=== PATIENT | male | born 1945 | race Two or more races ===

== ENCOUNTER 2017-02-23 13:50 | Emergency (ER) | payer OTHER ==
[~2017-02-23] VITALS: Ht 175.3 cm; Wt 79.4 kg
[~2017-02-23 13:50] MED LIST: ATOR10TA PO; CITA20TA11 PO; IBUP100O18 PO; LEVO125T8 PO; TRAZ-144 PO
--- NOTE | 2017-02-23 14:05 | NUR ---
PT IS IN ROOM #2B. DR LOO EVALUATED THE PT.
[2017-02-23 14:26] VITALS: BP 143/81
--- NOTE | 2017-02-23 14:26 | NUR ---
PT WAS D/C TO HOME. D/C INSTRUCTIONS GIVEN TO THE PT BY DR LOO.
== END 2017-02-23 14:28 | disposition home or self-care (01) ==
LOC: ER 13:50
DX: H91.91 Unspecified hearing loss, right ear (principal); E78.00 Pure hypercholesterolemia, unspecified

== ENCOUNTER 2018-01-02 13:03 | Emergency (ER) | payer OTHER ==
[~2018-01-02] VITALS: Ht 175.3 cm; Wt 79.4 kg
[~2018-01-02 13:03] MED LIST changes: -CITA20TA11 PO; +CITA20TA16 PO; -IBUP100O18 PO; +IBUP100O19 PO
--- NOTE | 2018-01-02 13:05 | NUR ---
at bed side to examine patient.
[2018-01-02] MEDS ORDERED: ACETAZOLAMIDE 250 MG TABLET (13:20)
[2018-01-02] MEDS ORDERED: ONDANSETRON 4 MG/2 ML VIAL IV ONE (13:30)
[2018-01-02] MEDS ORDERED: IV NORMAL SALINE 1000 ML BAG IV ONE (13:30)
[2018-01-02] MEDS ORDERED: HYDROMORPHONE 1 MG/1 ML DISP.SYRIN IV ONE (13:30)
[2018-01-02] MEDS ORDERED: ONDANSETRON 4 MG/2 ML VIAL ONE (13:41)
[2018-01-02] MEDS ORDERED: HYDROMORPHONE 2 MG/1 ML DISP.SYRIN ONE (13:41)
[2018-01-02 13:44] LABS: BASOPHILS # (AUTO) 0.1 K/uL (0.0-8.0); EOSINOPHILS # (AUTO) 0.2 K/uL (0.0-0.7); EOSINOPHILS % (AUTO) 3.2 % (0.0-7.0); HEMATOCRIT 43.9 % (36.7-47.1); HEMOGLOBIN 14.8 g/dL (12.5-16.3); LYMPHOCYTES # (AUTO) 3.2 K/uL (20.0-40.0); LYMPHOCYTES % (AUTO) 44.4 % (20.5-51.5); MEAN CORPUSCULAR HEMOGLOBIN 30.5 uug (23.8-33.4); MEAN CORPUSCULAR HGB CONC 34 g/dL (32.5-36.3); MEAN CORPUSCULAR VOLUME 90.8 fL (73.0-96.2); MONOCYTES # (AUTO) 0.9 K/uL (2.0-10.0); MONOCYTES % (AUTO) 12.6 % (0.0-11.0); NEUTROPHILS # (AUTO) 2.8 K/uL (1.8-8.9); NEUTROPHILS % (AUTO) 38.8 % (38.5-71.5); PLATELET COUNT (AUTO) 227 K/uL (152-348); RED BLOOD CELL COUNT(AUTO) 4.83 MIL/uL (4.06-5.63); WHITE BLOOD COUNT (AUTO) 7.3 K/uL (3.6-10.2)
[2018-01-02 13:52] LABS: CREATININE 1.1 mg/dL (0.6-1.3); POTASSIUM 3.9 mmol/L (3.5-5.1)
[2018-01-02 13:57] LABS: BILIRUBIN,DIRECT 0.1 mg/dL (0.0-0.2); BILIRUBIN,TOTAL 0.4 mg/dL (0.2-1.0); TOTAL PROTEIN, SERUM 7.2 g/dL (6.4-8.2)
--- NOTE | 2018-01-02 14:41 | NUR ---
DCD instructions and prescription provided to patient and pt's daughter who remains at bedside.
--- NOTE | 2018-01-02 14:54 | NUR ---
patient left unit ambulatory with steady gait. no c/of pain.
[2018-01-02 14:57] LABS: *BILIRUBIN,URIN NEGATIVE (NEGATIVE); *BLOOD, URINE 2+ (NEGATIVE); *CLARITY,URINE CLEAR (CLEAR); *COLOR,URINE YELLOW (YELLOW); *KETONES,URINE NEGATIVE (NEGATIVE); *PROTEIN,URINE NEGATIVE (NEGATIVE); *UROBILINOGEN,URINE 0.2 E.U./dl (NORMAL); LEUKOCYTE ESTERASE ,URINE NEGATIVE (NEGATIVE); NITRITE, URINE NEGATIVE (NEGATIVE); PH,URINE 5.5 (5.0-8.0); UGLUCOSE NEGATIVE (NEGATIVE)
[2018-01-02 15:11] LABS: MUCUS,URINE FEW /LPF (0-FEW); WBC,URINE 0-3 /HPF (0-3)
== END 2018-01-02 14:55 | disposition home or self-care (01) ==
LOC: ER 13:05
DX: N20.0 Calculus of kidney (principal); E78.00 Pure hypercholesterolemia, unspecified; Z79.1 Long term (current) use of non-steroidal anti-inflammatories (NSAID); Z79.891 Long term (current) use of opiate analgesic; Z79.899 Other long term (current) drug therapy
CPT/HCPCS: 36415; 71045; 74176; 80048; 80076; 81001; 83690; 84484; 85025; 85730; 87086; 93005; 99285; A4663; J1170; J2405; J7030; 70030-TC

== ENCOUNTER 2018-01-03 01:26 | Inpatient (IN) | payer OTHER ==
[~2018-01-03] VITALS: Ht 175.3 cm; Wt 79.4 kg
[~2018-01-03 01:26] MED LIST changes: +ACETAZOLAMIDE 250 MG TABLET
--- NOTE | 2018-01-03 02:00 | NUR ---
Dr. Silva at bedside for MSE.
[2018-01-03] MEDS ORDERED: METOCLOPRAMIDE HCL 10 MG/2 ML VIAL IV ONE (02:15)
[2018-01-03] MEDS ORDERED: HYDROMORPHONE 1 MG/1 ML DISP.SYRIN IV ONE ×2 (02:15→04:00)
[2018-01-03] MEDS ORDERED: IV NORMAL SALINE 1000 ML BAG IV ONE (02:15)
[2018-01-03] MEDS ORDERED: METOCLOPRAMIDE HCL 10 MG/2 ML VIAL ONE (02:40)
[2018-01-03] MEDS ORDERED: HYDROMORPHONE 2 MG/1 ML DISP.SYRIN ONE ×2 (02:42→03:57)
[2018-01-03 03:09] LABS: BASOPHILS % (AUTO) 0.2 % (0.0-2.0); HEMOGLOBIN 13.9 g/dL (12.5-16.3); LYMPHOCYTES # (AUTO) 0.9 K/uL (20.0-40.0); LYMPHOCYTES % (AUTO) 8.4 % (20.5-51.5); MEAN CORPUSCULAR HEMOGLOBIN 30.7 uug (23.8-33.4); MEAN CORPUSCULAR HGB CONC 34 g/dL (32.5-36.3); MEAN CORPUSCULAR VOLUME 90.5 fL (73.0-96.2); MONOCYTES # (AUTO) 1.1 K/uL (2.0-10.0); MONOCYTES % (AUTO) 10.5 % (0.0-11.0); NEUTROPHILS # (AUTO) 8.6 K/uL (1.8-8.9); NEUTROPHILS % (AUTO) 80.9 % (38.5-71.5); PLATELET COUNT (AUTO) 200 K/uL (152-348); RED BLOOD CELL COUNT(AUTO) 4.53 MIL/uL (4.06-5.63); WHITE BLOOD COUNT (AUTO) 10.6 K/uL (3.6-10.2)
[2018-01-03 03:25] LABS: BILIRUBIN,DIRECT 0.2 mg/dL (0.0-0.2); BILIRUBIN,TOTAL 0.7 mg/dL (0.2-1.0); CREATININE 1.3 mg/dL (0.6-1.3); POTASSIUM 3.5 mmol/L (3.5-5.1); TOTAL PROTEIN, SERUM 7.1 g/dL (6.4-8.2)
--- NOTE | 2018-01-03 03:26 | NUR ---
Pt states pain now a 5/10, decreased but is coming back. notified.
--- NOTE | 2018-01-03 04:00 | NUR ---
Simeon farley in [facility] - 01/03/18 at [address] Silva on panel call with Kari Oro NP
--- NOTE | 2018-01-03 04:05 | NUR ---
Dr. Silva classroom monitor with Dr. Jamar Kincaid.
--- NOTE | 2018-01-03 04:38 | NUR ---
Pt states pain about 3/10.
--- NOTE | 2018-01-03 04:48 | NUR ---
Report given to Norma TOLEDO Medsurg.
[2018-01-03 06:00] VITALS: BP 127/72
--- NOTE | 2018-01-03 06:00 | NUR ---
Received patient from ER via wheelchair. Patient just walked out from the restroom. is at bedside. A/O x 4. Denies pain at the moment. IV on the Left AC # 20, patent and intact. Patient c/o unable to urinate. Patient denies nausea and vomiting at the moment. Patient has a steady gait with minimal assistance. No signs of edema. Safety initiated. Call light within reach. Room is kept clutter free. Admission protocol followed. Belongings list done. Wallet is kept at bedside with . Vital signs stable. No temperature. Will closely monitor.
[2018-01-03] MEDS ORDERED: HYDROCODONE/APAP 10-325 MG TABLET PO PRN ×2 (06:45→09:30)
--- NOTE | 2018-01-03 06:50 | NUR ---
Patient c/o pain 5/10 on the left abdomen. Pain medication [place]ers 10-325 given. Will continue to monitor.
--- NOTE | 2018-01-03 07:30 | NUR ---
ON BED, RESTING AT BEDSIDE, SUPPORTIVE OF PATIENT CARE. PATIENT COMFORTABLE AT THIS TIME, APPETITE GOOD. VERBALIZED NO BM X 2 DAYS, WARM PRUNE JUICE PROVIDED, WILL MONITOR
[2018-01-03] MEDS ORDERED: KETOROLAC TROMETHAMINE 15 MG INJ IVP ONE (09:30)
[2018-01-03] MEDS ORDERED: HYDROCODONE/APAP 5-325MG TABLET PO PRN (09:30)
[2018-01-03] MEDS ORDERED: MAGNESIUM HYDROXIDE 30 ML LIQUID UDC PO PRN (09:30)
[2018-01-03] MEDS ORDERED: IV NS 1000 ML 1,000 ML IV ONE ×2 (09:30→21:00)
[2018-01-03] MEDS ORDERED: ONDANSETRON 4 MG/2 ML VIAL IV PRN (09:30)
[2018-01-03] MEDS ORDERED: MELATONIN 3 MG TABLET PO PRN (09:45)
[2018-01-03] MEDS: TAMSULOSIN HCL 0.4 MG CAP.SR.24H PO SCH ×2 (10:17→20:39)
--- NOTE | 2018-01-03 11:06 | NUR ---
TWO DAUGHTERS AT BEDSIDE, SUPPORTIVE OF PATIENT CARE. MED X 1 FOR COMPLAINT OF PAIN, PENDING RELIEF. NEW ORDERS FROM MD, DISCUSSED AND PROVIDED .
[2018-01-03 11:29] VITALS: BP 110/62
[2018-01-03 11:31] VITALS: BP 100/51
--- NOTE | 2018-01-03 12:16 | NUR ---
DR CLEARY IN ,SAW PATIENT .HAD ORDERS CARRIED OUT.
[2018-01-03] MEDS ORDERED: LACTULOSE 20 G/30 ML LIQUID UDC PO PRN (12:30)
[2018-01-03] MEDS: KETOROLAC TROMETHAMINE 15 MG INJ IVP SCH ×2 (12:57→22:38)
[2018-01-03] MEDS: LEVOTHYROXINE SODIUM 125 MCG TABLET PO SCH (14:51)
--- NOTE | 2018-01-03 16:00 | NUR ---
BELIEVED PASSED 1 STONE, NOT STRAIN UNABLE TO ATTEST INFO. NO BLEEDING , REINFORCED TO USE URINAL AND STRAIN URINE, VERBALIZED UNDERSTANDING.
[2018-01-03 16:08] VITALS: BP 115/61
--- NOTE | 2018-01-03 19:13 | NUR ---
RESTING WELL WITH FAMIKLT AT BEDSIDE, SUPPORTIVE OF PATIENT CARE. PATIENT COMFORTABLE. DENIES PAIN
[2018-01-03 19:30] VITALS: BP 113/61
--- NOTE | 2018-01-03 20:00 | NUR ---
Received patient laying comfortably in bed. Family at bedside. A/O x 4. Denies pain at the moment. Safety initiated. Call light within reach. Will continue to monitor.
[2018-01-03] MEDS ORDERED: TRAZODONE 50 MG TABLET PO SCH (21:00)
[2018-01-03] MEDS ORDERED: ATORVASTATIN 10 MG TABLET PO SCH (21:00)
[2018-01-03] MEDS ORDERED: DOCUSATE SODIUM 250 MG CAPSULE PO SCH (21:00)
[2018-01-03 23:54] LABS: *BILIRUBIN,URIN NEGATIVE (NEGATIVE); *BLOOD, URINE 1+ (NEGATIVE); *CLARITY,URINE CLEAR (CLEAR); *KETONES,URINE NEGATIVE (NEGATIVE); *PROTEIN,URINE NEGATIVE (NEGATIVE); *UROBILINOGEN,URINE 0.2 E.U./dl (NORMAL); LEUKOCYTE ESTERASE ,URINE NEGATIVE (NEGATIVE); NITRITE, URINE NEGATIVE (NEGATIVE); PH,URINE 5.5 (5.0-8.0); UGLUCOSE NEGATIVE (NEGATIVE)
[2018-01-04 00:30] LABS: *COLOR,URINE STRAW (YELLOW)
[2018-01-04 00:31] LABS: BACTERIA,URINE NONE SEEN /HPF (NONE SEEN); RBC,URINE 0-3 /HPF (0-3); SQUAMOUS EPITHELIAL CELL,UR NONE SEEN /HPF (NONE SEEN); WBC,URINE 0-3 /HPF (0-3)
[2018-01-04 04:55] VITALS: BP 114/73
--- NOTE | 2018-01-04 05:13 | NUR ---
Patient slept intermittently t/o shift. No c/o pain of SOB. IVF infusing on the left FA. Urinating ok. Vital signs stable. All meds given as ordered. All needs met. Safety and comfort measures maintained t/o shift. Room is kept clutter free. Bed is in low and locked position.
[2018-01-04] MEDS: LEVOTHYROXINE SODIUM 125 MCG TABLET PO SCH (06:01)
[2018-01-04 06:24] LABS: BASOPHILS % (AUTO) 0.7 % (0.0-2.0); EOSINOPHILS # (AUTO) 0.2 K/uL (0.0-0.7); EOSINOPHILS % (AUTO) 2.7 % (0.0-7.0); HEMATOCRIT 36.2 % (36.7-47.1); HEMOGLOBIN 12.7 g/dL (12.5-16.3); LYMPHOCYTES # (AUTO) 1.8 K/uL (20.0-40.0); LYMPHOCYTES % (AUTO) 25.6 % (20.5-51.5); MEAN CORPUSCULAR HEMOGLOBIN 31.6 uug (23.8-33.4); MEAN CORPUSCULAR HGB CONC 35 g/dL (32.5-36.3); MEAN CORPUSCULAR VOLUME 89.8 fL (73.0-96.2); MONOCYTES # (AUTO) 1.1 K/uL (2.0-10.0); MONOCYTES % (AUTO) 15.9 % (0.0-11.0); NEUTROPHILS % (AUTO) 55.1 % (38.5-71.5); PLATELET COUNT (AUTO) 169 K/uL (152-348); RED BLOOD CELL COUNT(AUTO) 4.03 MIL/uL (4.06-5.63); WHITE BLOOD COUNT (AUTO) 7.2 K/uL (3.6-10.2)
[2018-01-04 06:45] LABS: BILIRUBIN,TOTAL 0.6 mg/dL (0.2-1.0); POTASSIUM 3.8 mmol/L (3.5-5.1); TOTAL PROTEIN, SERUM 5.7 g/dL (6.4-8.2)
[2018-01-04] MEDS ORDERED: PANTOPRAZOLE SODIUM 40 MG TABLET.DR PO SCH ×2 (07:00)
[2018-01-04 07:39] LABS: EOSINOPHILS % (MANUAL) 4 % (0-8); LYMPHOCYTES % (MANUAL) 25 % (20-40); MONOCYTES % (MANUAL) 14 % (2-10); NEUTROPHILS % (MANUAL) 57 % (42-75)
--- NOTE | 2018-01-04 08:00 | NUR ---
REPORT OBTAINED, PT LAYING QUIETLY IN BED NO C/O, WANTS TO KNOW WHEN DR IS COMING. ?
[2018-01-04] MEDS ORDERED: CITALOPRAM 20 MG TABLET PO SCH (09:00)
[2018-01-04] MEDS ORDERED: CHOLECALCIFEROL 1,000 UNIT TABLET PO SCH (09:00)
[2018-01-04] MEDS ORDERED: DULO60CA45 PO (10:23)
[2018-01-04] MEDS ORDERED: MELO-107 PO (10:24)
[2018-01-04] MEDS ORDERED: ATOR40TA PO (10:27)
[2018-01-04 11:14] VITALS: BP 128/65
--- NOTE | 2018-01-04 12:30 | NUR ---
DC INSTRUCTIONS GIVEN. [facility] DCD. RX GIVEN WENT OVER BELONGINGS LIST. WALKED OUT WITH PT AND DAUGHTER TO CAR. QUESTIONS ANSWERED..
[2018-01-04] MEDS ORDERED: DOCUSATE SODIUM 100 MG CAPSULE PO SCH (21:00)
== END 2018-01-04 12:20 | disposition home or self-care (01) | DRG 694 ==
LOC: ER 01:31 → MED 05:00
PROVIDERS: ADMIT Internal Medicine; ATTEND Internal Medicine
DX: N13.2 Hydronephrosis with renal and ureteral calculous obstruction (principal); E03.9 Hypothyroidism, unspecified; E78.5 Hyperlipidemia, unspecified; R11.10 Vomiting, unspecified; E86.0 Dehydration; F32.9 Major depressive disorder, single episode, unspecified; H81.09 Meniere's disease, unspecified ear; G47.00 Insomnia, unspecified; F41.9 Anxiety disorder, unspecified; Z83.3 Family history of diabetes mellitus; Z79.899 Other long term (current) drug therapy; K21.9 Gastro-esophageal reflux disease without esophagitis; E78.00 Pure hypercholesterolemia, unspecified
CPT/HCPCS: 36415; 70030-TC; 82360; 83605; 83690; 85025; 87040; 87086; 93005; A4663; J1170; J1885; J2765; J7030

== ENCOUNTER 2019-02-10 20:50 | Inpatient (IN) | payer OTHER ==
[~2019-02-10] VITALS: Ht 175.3 cm; Wt 77.1 kg
[~2019-02-10 20:50] MED LIST changes: -ATOR10TA PO; +ATOR40TA PO; +DULO60CA45 PO; -IBUP100O19 PO; +MELO-107 PO; -TRAZ-144 PO; +TRAZ-182 PO
[2019-02-10] MEDS ORDERED: ONDANSETRON 4 MG/2 ML VIAL IV ONE (21:00)
[2019-02-10] MEDS ORDERED: ALBUTEROL SULFATE 2.5 MG/3 ML NEBU NEB ONE (21:00)
[2019-02-10] MEDS ORDERED: TADALAFIL 5 MG TABLET (21:01)
[2019-02-10] MEDS ORDERED: SYNTHROID 125 MCG (21:01)
[2019-02-10] MEDS ORDERED: PANTOPRAZOLE SODIUM 40 MG VIAL IV ONE (21:15)
[2019-02-10] MEDS ORDERED: ALBUTEROL SULFATE 2.5 MG/3 ML NEBU ONE (21:15)
[2019-02-10] MEDS ORDERED: LORAZEPAM 2 MG/1 ML VIAL IV ONE (21:15)
[2019-02-10] MEDS ORDERED: LORAZEPAM 2 MG/1 ML VIAL ONE (21:21)
[2019-02-10] MEDS ORDERED: ONDANSETRON 4 MG/2 ML VIAL ONE ×2 (21:21→21:36)
[2019-02-10] MEDS ORDERED: PANTOPRAZOLE SODIUM 40 MG VIAL ONE (21:21)
[2019-02-10 21:29] LABS: BASOPHILS # (AUTO) 0.1 K/uL (0.0-8.0); BASOPHILS % (AUTO) 0.8 % (0.0-2.0); EOSINOPHILS # (AUTO) 0.1 K/uL (0.0-0.7); EOSINOPHILS % (AUTO) 1.5 % (0.0-7.0); HEMATOCRIT 42.2 % (36.7-47.1); LYMPHOCYTES # (AUTO) 1.8 K/uL (20.0-40.0); MEAN CORPUSCULAR HEMOGLOBIN 30.3 uug (23.8-33.4); MEAN CORPUSCULAR HGB CONC 33 g/dL (32.5-36.3); MONOCYTES # (AUTO) 0.8 K/uL (2.0-10.0); MONOCYTES % (AUTO) 9.7 % (0.0-11.0); PLATELET COUNT (AUTO) 209 K/uL (152-348); RED BLOOD CELL COUNT(AUTO) 4.63 MIL/uL (4.06-5.63); WHITE BLOOD COUNT (AUTO) 8.8 K/uL (3.6-10.2)
[2019-02-10 21:37] LABS: CARBON DIOXIDE 24 mmol/L (21-32); CHLORIDE 103 mmol/L (98-107); CREATININE 0.9 mg/dL (0.6-1.3); GLUCOSE 150 mg/dL (74-106); POTASSIUM 3.8 mmol/L (3.5-5.1); UREA NITROGEN, BLOOD 13 mg/dL (7-18)
[2019-02-10 21:49] LABS: ALANINE AMINOTRANSFERASE 22 U/L (16-63); ALKALINE PHOSPHATASE 58 U/L (50-136); ASPARTATE AMINOTRANSFERASE 19 U/L (15-37); BILIRUBIN,DIRECT 0.2 mg/dL (0.0-0.2); BILIRUBIN,TOTAL 0.7 mg/dL (0.2-1.0); TOTAL PROTEIN, SERUM 7.6 g/dL (6.4-8.2)
[2019-02-11] MEDS ORDERED: MECLIZINE HCL 25 MG TABLET PO ONE (00:30)
[2019-02-11] MEDS ORDERED: MECLIZINE HCL 25 MG TABLET ONE (00:35)
[2019-02-11 04:55] VITALS: BP 105/72
[2019-02-11] MEDS ORDERED: BLOOD SUGAR DIAGNOSTIC 1 EACH STRIP VI SCH (06:00)
[2019-02-11 06:50] LABS: THYROID STIMULATING HORMONE 0.966 mIU/mL (0.358-3.740)
[2019-02-11] MEDS ORDERED: PANTOPRAZOLE SODIUM 40 MG TABLET.DR PO SCH (07:00)
[2019-02-11] MEDS: BLOOD SUGAR DIAGNOSTIC 1 EACH STRIP VI SCH ×2 (07:30→11:30)
[2019-02-11] MEDS ORDERED: ASPIRIN EC 81 MG TABLET.DR PO SCH (09:00)
[2019-02-11 11:00] VITALS: BP 132/72
== END 2019-02-11 13:15 | disposition home or self-care (01) | DRG 918 ==
LOC: ER 20:50 → OBSVTOIN 02-11 04:24 → TELE3 02-11 04:24
PROVIDERS: ADMIT Nurse Practitioner Acute Care
DX: T59.91XA Toxic effect of unspecified gases, fumes and vapors, accidental (unintentional), initial encounter (principal); T52.8X1A Toxic effect of other organic solvents, accidental (unintentional), initial encounter; R11.10 Vomiting, unspecified; R42 Dizziness and giddiness; H83.09 Labyrinthitis, unspecified ear; Y92.69 Other specified industrial and construction area as the place of occurrence of the external cause; E78.00 Pure hypercholesterolemia, unspecified; E03.9 Hypothyroidism, unspecified; G47.30 Sleep apnea, unspecified; F41.9 Anxiety disorder, unspecified; E78.5 Hyperlipidemia, unspecified; I49.3 Ventricular premature depolarization; Z79.890 Hormone replacement therapy; Z79.899 Other long term (current) drug therapy; Z91.81 History of falling
CPT/HCPCS: 36415; 70030-TC; 70450; 71045; 84443; 85025; 85651; 85730; 93005; 93307; C9113; G0378; J2060; J2405; J8597

== ENCOUNTER 2023-12-10 11:30 | Emergency (ER) | payer MEDICARE, OTHER ==
[~2023-12-10] VITALS: Ht 177.8 cm; Wt 77.1 kg
[~2023-12-10 11:30] MED LIST changes: +SYNTHROID 125 MCG; +TADALAFIL 5 MG TABLET
[2023-12-10] MEDS ORDERED: ACET250T3 PO (11:42)
[2023-12-10] MEDS ORDERED: LEVO112T5 PO (11:42)
[2023-12-10] MEDS ORDERED: ATOR80TA PO (11:42)
[2023-12-10] MEDS ORDERED: TRAZ-257 PO (11:42)
[2023-12-10] MEDS ORDERED: PANT40TA49 PO (11:42)
[2023-12-10] MEDS ORDERED: METF-886 PO (11:42)
[2023-12-10 12:07] LABS: *BILIRUBIN,URIN NEGATIVE (NEGATIVE); *BLOOD, URINE 3+ (NEGATIVE); *CLARITY,URINE CLEAR (CLEAR); *COLOR,URINE YELLOW (YELLOW); *KETONES,URINE NEGATIVE (NEGATIVE); *PROTEIN,URINE 1+ (NEGATIVE); *UROBILINOGEN,URINE 0.2 E.U./dl (NORMAL); LEUKOCYTE ESTERASE ,URINE NEGATIVE (NEGATIVE); NITRITE, URINE NEGATIVE (NEGATIVE); PH,URINE 7.5 (5.0-8.0); UGLUCOSE NEGATIVE (NEGATIVE)
[2023-12-10 12:21] LABS: ALANINE AMINOTRANSFERASE 18 U/L (16-63); ALKALINE PHOSPHATASE 71 U/L (50-136); ASPARTATE AMINOTRANSFERASE 12 U/L (15-37); BILIRUBIN,DIRECT 0.1 mg/dL (0.0-0.2); BILIRUBIN,TOTAL 0.8 mg/dL (0.2-1.0); CALCIUM 9.9 mg/dL (8.5-10.1); CARBON DIOXIDE 25 mmol/L (21-32); CHLORIDE 108 mmol/L (98-107); CREATININE 1.3 mg/dL (0.6-1.3); GLUCOSE 155 mg/dL (74-106); LIPASE 34 U/L (16-77); POTASSIUM 3.6 mmol/L (3.5-5.1); SODIUM SERUM 141 mmol/L (136-145); TOTAL PROTEIN, SERUM 7.2 g/dL (6.4-8.2); UREA NITROGEN, BLOOD 18 mg/dL (7-18)
[2023-12-10] MEDS ORDERED: KETOROLAC TROMETHAMINE 30 MG INJ ONE (12:31)
[2023-12-10] MEDS: KETOROLAC TROMETHAMINE 30 MG INJ IM ONE (12:37)
[2023-12-10 13:02] LABS: BASOPHILS # (AUTO) 0.2 K/UL (0.0-0.2); BASOPHILS % (AUTO) 1.7 % (0.0-2.0); EOSINOPHILS # (AUTO) 0.2 K/uL (0.0-0.7); EOSINOPHILS % (AUTO) 2.5 % (0.0-7.0); HEMATOCRIT 40.4 % (36.7-47.1); HEMOGLOBIN 13.7 g/dL (12.5-16.3); LYMPHOCYTES # (AUTO) 1.8 K/uL (0.8-4.8); LYMPHOCYTES % (AUTO) 19.9 % (20.5-51.5); MEAN CORPUSCULAR HEMOGLOBIN 30.7 uug (23.8-33.4); MEAN CORPUSCULAR HGB CONC 34 g/dL (32.5-36.3); MEAN CORPUSCULAR VOLUME 90.2 fL (73.0-96.2); MONOCYTES # (AUTO) 0.8 K/uL (0.1-1.30); MONOCYTES % (AUTO) 8.3 % (0.0-11.0); NEUTROPHILS # (AUTO) 6.2 K/uL (1.8-8.9); NEUTROPHILS % (AUTO) 67.6 % (38.5-71.5); PLATELET COUNT (AUTO) 214 K/uL (152-348); RED BLOOD CELL COUNT(AUTO) 4.48 MIL/uL (4.06-5.63); RED CELL DISTRIBUTION WIDTH 13.1 % (12.1-16.2); WHITE BLOOD COUNT (AUTO) 9.1 K/uL (3.6-10.2)
[2023-12-10] MEDS ORDERED: HYDR-3980 PO (14:00)
[2023-12-10] MEDS ORDERED: TAMS-3 PO (14:00)
[2023-12-10] MEDS ORDERED: MAGN296S70 PO (14:00)
[2023-12-10] MEDS ORDERED: SIME1PAC PO (14:00)
[2023-12-10 14:19] VITALS: BP 110/80; TEMP 98; O2SAT 99
[2023-12-10 14:39] LABS: BACTERIA,URINE MODERATE /HPF (NONE SEEN); RBC,URINE TNTC /HPF (0-3); SQUAMOUS EPITHELIAL CELL,UR NONE SEEN /HPF (NONE SEEN)
== END 2023-12-10 14:19 | disposition home or self-care (01) ==
LOC: ER 11:30
DX: N20.0 Calculus of kidney (principal); K59.00 Constipation, unspecified; E78.00 Pure hypercholesterolemia, unspecified; Z98.890 Other specified postprocedural states; Z79.899 Other long term (current) drug therapy
CPT/HCPCS: 99285; 74176; 71045; 80076; 80048; 81001; 83690; 85025; 36415; 93005; 96372; J1885; A4606; A4663